=== PATIENT | female | born 1975 | race Hispanic/Latino ===

== ENCOUNTER 2018-07-14 12:27 | Emergency (ER) | payer OTHER, SELFPAY ==
[2018-07-14] MEDS ORDERED: Dexamethasone 4 MG TAB ONE (14:13)
== END 2018-07-14 14:20 | disposition home or self-care (01) ==
LOC: ERS 12:27
DX: M54.5 Low back pain (principal)
CPT/HCPCS: 99283; J8540

== ENCOUNTER 2018-10-31 12:27 | Emergency (ER) | payer SELFPAY ==
[2018-10-31] MEDS ORDERED: Ketorolac Tromethamine 60 MG/2 ML VIAL ONE (13:45)
[2018-10-31 13:52] LABS: Bilirubin Negative (Negative); Blood, Urine Negative (Negative); Clarity TURBID (Clear); Glucose, Urine (Dipstick) Negative (Negative); Leukocyte Small (Negative); Nitrite Negative (Negative); Protein, Urine (Dipstick) Negative (Neg-Trace); Specific Gravity, Urine 1.016 (1.002-1.036); pH, Urine 7.5 (5.0-9.0)
[2018-10-31 13:54] LABS: Pregnancy Test - Urine (BHCG) Negative (Negative); Pregu Control Background? CLEAR/WHITE (CLR/WHITE); Pregu Control Bar Appear? YES (CONTROL BAR); Specific Gravity 1.016 (1.002-1.036)
[2018-10-31 13:58] LABS: Bacteria/HPF 2+ HPF (None Seen); Hyaline Casts/LPF 0-3 HYALINE CAST LPF (0-3 Hyaline); Pathc Cast-AUWi Flag 0.14 (0-2.49); RBC/HPF 0-3 HPF (0-3); Squamous Epithelial 21-50 HPF (0-3); WBC/HPF 0-3 HPF (0-3)
== END 2018-10-31 14:20 | disposition home or self-care (01) ==
LOC: ERS 12:27
DX: S39.012A Strain of muscle, fascia and tendon of lower back, initial encounter (principal); X58.XXXA Exposure to other specified factors, initial encounter
CPT/HCPCS: 81003; 81015; 81025; 87086; 96372; J1885

== ENCOUNTER 2019-05-16 16:47 | Emergency (ER) | payer SELFPAY ==
[~2019-05-16 16:47] MED LIST: ISOVUE-370 76%-LOCM 1 ML ONE
[2019-05-16] MEDS ORDERED: Ondansetron PF 4 MG/2 ML Vial ONE (18:36)
[2019-05-16] MEDS ORDERED: Morphine 4 MG/ML VIAL ONE (18:36)
[2019-05-16 18:49] LABS: #Basophils 0.1 thou/uL (0.0-0.2); #Lymphocytes 2.4 thou/uL (1.20-3.40); #Monocytes 0.7 thou/uL (0.11-0.59); %Basophils 0.7 % (0.0-1.0); %Eosinophils 0.5 % (0.0-10.0); %Lymphocytes 25.7 % (21.0-51.0); %Monocytes 7.7 % (0.0-10.0); %Neutrophils 65.4 % (42.0-75.0); Hemoglobin 12.1 g/dL (12.0-16.0); Mean Corpuscular Volume 94.1 fL (78.0-98.0); Mean Platelet Volume 9.8 fL (7.4-10.4); Platelet Count 228 thou/uL (130-400); RBC Distribution Width 11.5 % (11.5-14.5); Red Blood Cell (RBC) Count 3.76 mill/uL (4.20-5.40); White Blood Cell (WBC) Count 9.2 thou/uL (4.8-10.8)
[2019-05-16 18:56] LABS: BHCG - Serum Negative (NEGATIVE); Pregs Control Background? CLEAR/WHITE (CLR/WHITE); Pregs Control Bar Appear? YES (CONTROL BAR)
[2019-05-16 19:17] LABS: ALT (SGPT) 22 U/L (8-55); AST (SGOT) 20 U/L (5-34); Albumin 3.7 g/dL (3.5-5.0); Alkaline Phosphatase 110 U/L (40-150); Anion Gap 11 mmol/L (10-20); BUN (Urea Nitrogen) 14 mg/dL (7.0-18.7); Bilirubin, Total 0.3 mg/dL (0.2-1.2); Calc. Creatinine Clearance 0 mL/min (70-130); Calcium 8.6 mg/dL (7.8-10.44); Carbon Dioxide 24 mmol/L (22-29); Chloride 105 mmol/L (98-107); Estimated GFR-MDRD 87; Globulin 3.1 g/dL (2.4-3.5); Glucose 79 mg/dL (70-105); Lipase 37 U/L (8-78); Potassium 3.9 mmol/L (3.5-5.1); Protein, Total 6.8 g/dL (6.0-8.3); Sodium 136 mmol/L (136-145)
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
[2019-05-16] MEDS ORDERED: Ketorolac Tromethamine 30 MG/ML VIAL ONE (20:15)
== END 2019-05-16 20:30 | disposition home or self-care (01) ==
LOC: ERS 16:47
DX: M62.838 Other muscle spasm (principal); V89.2XXA Person injured in unspecified motor-vehicle accident, traffic, initial encounter
CPT/HCPCS: 36415; 70450; 71260; 72125; 74177; 80053; 83690; 84703; 85025; 93005; 96361; 96374; 96375; J1885; J2270; J2405; Q9966